=== PATIENT | female | born 1955 | race Two or more races ===

== ENCOUNTER 2017-11-12 08:54 | Inpatient (IN) | payer OTHER ==
[2017-11-12] MEDS ORDERED: LACTATED RINGER'S 1,000 ML IV* (09:30)
[2017-11-12] MEDS: TRANEXAMIC ACID 1,000 MG in D5W 100 ML AT INCISION X1 IVPB (09:30)
[2017-11-12] MEDS: CEFAZOLIN 2 GM/50 ML (PMX) 50 ML IVPB (09:30)
[2017-11-12] MEDS: TRANEXAMIC ACID 1,000 MG in D5W 100 ML AT CLOSURE X1 IVPB (09:30)
[2017-11-12] MEDS ORDERED: CEFAZOLIN 1 GM INJ (10:10)
[2017-11-12] MEDS ORDERED: MIDAZOLAM 1 MG/ML 2 ML INJ (10:10)
[2017-11-12] MEDS ORDERED: ROPIVACAINE 0.5 % 30 ML VIAL (10:10)
[2017-11-12] MEDS ORDERED: PROPOFOL 20 ML (10:10)
[2017-11-12] MEDS ORDERED: ROCURONIUM 50 MG INJ (10:10)
[2017-11-12] MEDS ORDERED: NEOSTIGMINE 3 MG/3 ML SYRINGE (10:10)
[2017-11-12] MEDS ORDERED: ONDANSETRON 4 MG INJ (10:10)
[2017-11-12] MEDS ORDERED: GLYCOPYRROLATE 0.4 MG INJ (10:10)
[2017-11-12] MEDS ORDERED: DEXAMETHASONE 4 MG/ML 1 ML INJ (10:10)
[2017-11-12] MEDS ORDERED: FENTAnyl 50 MCG/ML VIAL (10:10)
[2017-11-12] MEDS ORDERED: BUPIVACAINE 0.5% (SDV) 30 ML INJ ×2 (10:11→13:18)
[2017-11-12] MEDS ORDERED: IPRATROPIUM (NEB) 0.5 MG/2.5 ML AMP HHN (13:30)
[2017-11-12] MEDS ORDERED: MAGNESIUM HYDROXIDE 30ML CUP PO (13:30)
[2017-11-12] MEDS ORDERED: TRIMETHOBENZAMIDE 100 MG/ML VIAL IM (13:30)
[2017-11-12] MEDS ORDERED: LABETALOL HCL 20MG INJ IV (13:30)
[2017-11-12] MEDS ORDERED: ONDANSETRON 4 MG INJ IV (13:30)
[2017-11-12] MEDS ORDERED: hydrALAzine 20 MG INJ IV (13:30)
[2017-11-12] MEDS ORDERED: DIPHENHYDRAMINE 50 MG INJ IM (13:30)
[2017-11-12] MEDS ORDERED: MEPERIDINE 25 MG INJ IV (13:30)
[2017-11-12] MEDS ORDERED: BETHANECHOL 25 MG TAB PO (13:30)
[2017-11-12] MEDS ORDERED: MIDAZOLAM 1 MG/ML 2 ML INJ IV (13:30)
[2017-11-12] MEDS ORDERED: EPHEDrine SULFATE 50 MG/5 ML SYG IV (13:30)
[2017-11-12] MEDS ORDERED: NALOXONE (0.4 MG/ML) INJ IV (13:30)
[2017-11-12] MEDS ORDERED: SENNA/DOCUSATE NA (8.6MG/50MG) TAB PO (13:30)
[2017-11-12] MEDS ORDERED: NA PHOSPHATE/BIPHOS 133 ML ENEMA PR (13:30)
[2017-11-12] MEDS ORDERED: HYDROmorphONE (0.2 MG/ML) 10ML SYG IV ×3 (13:30)
[2017-11-12] MEDS ORDERED: ALBUTEROL 0.083% (NEB) 2.5 MG/3 ML AMP HHN (13:30)
[2017-11-12] MEDS ORDERED: BISACODYL 10 MG SUPP PR (13:30)
[2017-11-12] MEDS ORDERED: FENTAnyl 50 MCG/ML VIAL IV ×3 (13:30)
[2017-11-12] MEDS ORDERED: OXYCODONE/ACETAMINOPHEN (5/325) TAB PO ×2 (13:30)
[2017-11-12] MEDS: POLYMYXIN/BACITRACIN 1L IRRIG IRR (13:38)
[2017-11-12] MEDS ORDERED: METOCLOPRAMIDE 10 MG INJ (14:53)
[2017-11-12] MEDS ORDERED: SUGAMMADEX SODIUM 200 MG/2 ML VIAL IV (14:53)
[2017-11-12] MEDS: ASPIRIN (EC) 325 MG TAB PO (16:38)
[2017-11-12] MEDS: DOCUSATE SODIUM 100 MG CAP PO (16:39)
[2017-11-12] MEDS: CEFAZOLIN 1 GM/50 ML (PMX) 50 ML IVPB ×2 (16:40→22:48)
[2017-11-12] MEDS: ONDANSETRON 4 MG INJ IV ×3 (16:41→22:55)
[2017-11-12] MEDS: SOD CHLORIDE 0.9% 1,000 ML IV (16:42)
[2017-11-12] MEDS: DIPHENHYDRAMINE 50 MG INJ IV (17:57)
[2017-11-12 20:29] LABS: HEMOGLOBIN A1C 6.7 % (0-5.9)
[2017-11-12] MEDS: ACETAMINOPHEN 1000MG/100ML IV 100 ML IVPB ×2 (20:33→21:30)
[2017-11-13] MEDS: SOD CHLORIDE 0.9% 1,000 ML IV ×2 (01:45→14:15)
[2017-11-13] MEDS: ACETAMINOPHEN 1000MG/100ML IV 100 ML IVPB ×3 (04:52→21:23)
[2017-11-13 05:12] LABS: ADD MAN DIFF? NO
[2017-11-13] MEDS: CEFAZOLIN 1 GM/50 ML (PMX) 50 ML IVPB (05:29)
[2017-11-13 05:38] LABS: ANION GAP 16 (8-16); BLOOD UREA NITROGEN 12 mg/dl (7-20); CALCIUM 9.3 mg/dl (8.4-10.2); CARBON DIOXIDE 27 mmol/L (21-31); CHLORIDE 105 mmol/L (97-110); CREATININE 0.56 mg/dl (0.44-1.00); GLUCOSE 166 mg/dl (70-220); POTASSIUM 4.4 mmol/L (3.5-5.1); SODIUM 144 mmol/L (135-144)
[2017-11-13 05:39] LABS: BASOPHILS % 0.1 % (0.0-2.0); HEMATOCRIT 32.1 % (37.0-47.0); HEMOGLOBIN 10.5 g/dl (12.0-16.0); LYMPHOCYTES # 1.5 10^3/ul (0.8-2.9); LYMPHOCYTES % 12.8 % (15.0-51.0); MEAN CORPUSCULAR HEMOGLOBIN 27.3 pg (29.0-33.0); MEAN CORPUSCULAR HGB CONC 32.7 g/dl (32.0-37.0); MEAN CORPUSCULAR VOLUME 83.6 fl (82.0-101.0); MEAN PLATELET VOLUME 11.8 fl (7.4-10.4); MONOCYTE # 0.8 10^3/ul (0.3-0.9); MONOCYTES % 6.3 % (0.0-11.0); NEUTROPHIL # 9.6 10^3/ul (1.6-7.5); NEUTROPHILS % 80.4 % (39.0-77.0); PLATELET COUNT 238 10^3/UL (140-415); RED BLOOD COUNT 3.84 10^6/ul (4.20-5.40); RED CELL DISTRIBUTION WIDTH 13.3 % (11.5-14.5)
[2017-11-13 05:39] LABS: WHITE BLOOD COUNT 11.9 10^3/ul (4.8-10.8)
[2017-11-13] MEDS: ONDANSETRON 4 MG INJ IV (07:25)
[2017-11-13] MEDS: ASPIRIN (EC) 325 MG TAB PO (09:41)
[2017-11-13] MEDS: FERROUS FUMARATE (SR) TAB PO ×2 (09:41→21:22)
[2017-11-13] MEDS: DOCUSATE SODIUM 100 MG CAP PO ×2 (09:41→21:22)
[2017-11-13] MEDS: CELECOXIB 100 MG CAP PO ×2 (09:41→21:22)
[2017-11-13] MEDS: GABAPENTIN 100 MG CAP PO ×2 (09:42→21:22)
[2017-11-13] MEDS: traMADol 50 MG TAB PO ×2 (12:09→16:14)
[2017-11-13] MEDS: ZOLPIDEM 5 MG TAB PO (21:22)
[2017-11-14] MEDS: SOD CHLORIDE 0.9% 1,000 ML IV ×2 (02:45→15:15)
[2017-11-14] MEDS: ACETAMINOPHEN 1000MG/100ML IV 100 ML IVPB (05:03)
[2017-11-14] MEDS: PANTOPRAZOLE (EC) 40 MG TAB PO (05:05)
[2017-11-14] MEDS: DOCUSATE SODIUM 100 MG CAP PO ×2 (09:25→21:00)
[2017-11-14] MEDS: FERROUS FUMARATE (SR) TAB PO ×2 (09:26→21:12)
[2017-11-14] MEDS: ASPIRIN (EC) 325 MG TAB PO (09:26)
[2017-11-14] MEDS: CELECOXIB 100 MG CAP PO ×2 (09:26→21:12)
[2017-11-14] MEDS: GABAPENTIN 100 MG CAP PO ×2 (09:26→21:12)
[2017-11-14 10:08] LABS: ADD MAN DIFF? NO
[2017-11-14 10:10] LABS: WHITE BLOOD COUNT 11.2 10^3/ul (4.8-10.8)
[2017-11-14 10:10] LABS: BASOPHILS % 0.4 % (0.0-2.0); EOSINOPHILS # 0.1 10^3/ul (0.0-0.5); EOSINOPHILS % 1.2 % (0.0-7.0); HEMATOCRIT 31.6 % (37.0-47.0); HEMOGLOBIN 10.4 g/dl (12.0-16.0); LYMPHOCYTES # 3.4 10^3/ul (0.8-2.9); LYMPHOCYTES % 30.3 % (15.0-51.0); MEAN CORPUSCULAR HEMOGLOBIN 27.7 pg (29.0-33.0); MEAN CORPUSCULAR HGB CONC 32.9 g/dl (32.0-37.0); MEAN CORPUSCULAR VOLUME 84.3 fl (82.0-101.0); MEAN PLATELET VOLUME 12.2 fl (7.4-10.4); MONOCYTE # 0.8 10^3/ul (0.3-0.9); MONOCYTES % 7.4 % (0.0-11.0); NEUTROPHIL # 6.8 10^3/ul (1.6-7.5); NEUTROPHILS % 60.4 % (39.0-77.0); PLATELET COUNT 206 10^3/UL (140-415); RED BLOOD COUNT 3.75 10^6/ul (4.20-5.40); RED CELL DISTRIBUTION WIDTH 13.6 % (11.5-14.5)
[2017-11-14 10:28] LABS: ANION GAP 15 (8-16); BLOOD UREA NITROGEN 14 mg/dl (7-20); CALCIUM 8.6 mg/dl (8.4-10.2); CARBON DIOXIDE 29 mmol/L (21-31); CHLORIDE 101 mmol/L (97-110); CREATININE 0.61 mg/dl (0.44-1.00); GLUCOSE 117 mg/dl (70-220); SODIUM 141 mmol/L (135-144)
[2017-11-14] MEDS: traMADol 50 MG TAB PO ×3 (11:50→19:56)
[2017-11-14] MEDS: TRIMETHOBENZAMIDE 100 MG/ML VIAL IM (17:24)
[2017-11-15] MEDS: traMADol 50 MG TAB PO ×5 (03:01→19:56)
[2017-11-15] MEDS: ZOLPIDEM 5 MG TAB PO (03:01)
[2017-11-15] MEDS: PANTOPRAZOLE (EC) 40 MG TAB PO (06:51)
[2017-11-15] MEDS: DOCUSATE SODIUM 100 MG CAP PO (09:00)
[2017-11-15] MEDS: CELECOXIB 100 MG CAP PO (09:16)
[2017-11-15] MEDS: FERROUS FUMARATE (SR) TAB PO (09:16)
[2017-11-15] MEDS: ASPIRIN (EC) 325 MG TAB PO (09:16)
[2017-11-15] MEDS: GABAPENTIN 100 MG CAP PO ×2 (09:16→12:40)
[2017-11-15 10:51] LABS: ADD MAN DIFF? NO
[2017-11-15 10:59] LABS: WHITE BLOOD COUNT 10.2 10^3/ul (4.8-10.8)
[2017-11-15 10:59] LABS: BASOPHIL # 0.1 10^3/ul (0.0-0.1); BASOPHILS % 0.5 % (0.0-2.0); EOSINOPHILS # 0.1 10^3/ul (0.0-0.5); EOSINOPHILS % 0.9 % (0.0-7.0); HEMATOCRIT 31.2 % (37.0-47.0); HEMOGLOBIN 10.3 g/dl (12.0-16.0); LYMPHOCYTES # 3.8 10^3/ul (0.8-2.9); MEAN CORPUSCULAR HEMOGLOBIN 27.7 pg (29.0-33.0); MEAN CORPUSCULAR VOLUME 83.9 fl (82.0-101.0); MEAN PLATELET VOLUME 12.8 fl (7.4-10.4); MONOCYTE # 0.9 10^3/ul (0.3-0.9); MONOCYTES % 8.8 % (0.0-11.0); NEUTROPHIL # 5.3 10^3/ul (1.6-7.5); NEUTROPHILS % 52.5 % (39.0-77.0); PLATELET COUNT 174 10^3/UL (140-415); RED BLOOD COUNT 3.72 10^6/ul (4.20-5.40); RED CELL DISTRIBUTION WIDTH 13.5 % (11.5-14.5)
[2017-11-15 11:10] LABS: POSITIVE DIFF @See below
[2017-11-15 11:11] LABS: ANION GAP 14 (8-16); BLOOD UREA NITROGEN 10 mg/dl (7-20); CALCIUM 8.8 mg/dl (8.4-10.2); CARBON DIOXIDE 27 mmol/L (21-31); CHLORIDE 102 mmol/L (97-110); CREATININE 0.53 mg/dl (0.44-1.00); GLUCOSE 125 mg/dl (70-220); POTASSIUM 4.2 mmol/L (3.5-5.1); SODIUM 139 mmol/L (135-144)
== END 2017-11-15 19:50 | DRG 470 ==
LOC: REC 08:54 → MS1 20:50
PROVIDERS: Orthopaedic Surgery
PROC: 0SRC0J9 Replacement of Right Knee Joint with Synthetic Substitute, Cemented, Open Approach (ICD-10-PCS; principal; 2017-11-12 11:30)
DX: M17.11 Unilateral primary osteoarthritis, right knee (principal); I10 Essential (primary) hypertension; R73.03 Prediabetes
CPT/HCPCS: 73560; 80048; 82962; 83036; 85025; 86850; 86900; 86901; 87081; 88304; 93005; 97110; 97116; 97161; 97165; 97530

== ENCOUNTER → 2018-08-18 | Outpatient (CLI) | payer OTHER | END | disposition home or self-care (01) | LOC: LAB 08:00 | DX: Z01.818 Encounter for other preprocedural examination (principal); Z11.2 Encounter for screening for other bacterial diseases | CPT/HCPCS: 87081 ==

== ENCOUNTER 2018-08-28 10:25 | Inpatient (IN) | payer OTHER ==
[2018-08-28] MEDS: LACTATED RINGER'S 1,000 ML IV (06:00)
[2018-08-28] MEDS: DEXAMETHASONE 4 MG/ML 1 ML INJ IV (10:00)
[2018-08-28] MEDS: ACETAMINOPHEN 500 MG TAB PO (10:00)
[~2018-08-28 10:25] MED LIST: CEFAZOLIN 2 GM/50 ML (PMX) 50 ML (FOR WT < 120 KG) IVPB; SODIUM CHLORIDE IVPB; TRANEXAMIC ACID 1000 MG IVPB; TRANEXAMIC ACID IVPB; [UNRECOGNIZED DRUG - OTHER] IVPB
[2018-08-28] MEDS ORDERED: POLYMYXIN B 500000 UNIT INJ (11:41)
[2018-08-28] MEDS ORDERED: MIDAZOLAM 1 MG/ML 2 ML INJ ×2 (12:07)
[2018-08-28] MEDS ORDERED: CEFAZOLIN 1 GM INJ (12:07)
[2018-08-28] MEDS ORDERED: FENTAnyl 50 MCG/ML VIAL (12:07)
[2018-08-28] MEDS ORDERED: PROPOFOL 100 ML (12:07)
[2018-08-28] MEDS ORDERED: ROPIVACAINE 0.5 % 30 ML VIAL (12:07)
[2018-08-28] MEDS: CEFAZOLIN 2 GM/50 ML (PMX) 50 ML IVPB ×2 (12:40→15:58)
[2018-08-28] MEDS ORDERED: ONDANSETRON 4 MG INJ (13:06)
[2018-08-28] MEDS ORDERED: FAMOTIDINE 20 MG INJ (13:06)
[2018-08-28] MEDS ORDERED: DEXAMETHASONE 4 MG/ML 1 ML INJ (13:06)
[2018-08-28] MEDS ORDERED: METOCLOPRAMIDE 10 MG INJ (13:06)
[2018-08-28] MEDS ORDERED: EPHEDrine 50 MG INJ (13:11)
[2018-08-28] MEDS: BACITRACIN 50000 UNITS INJ (13:18)
[2018-08-28] MEDS: POLYMYXIN B 500000 UNIT INJ (13:18)
[2018-08-28] MEDS ORDERED: FENTAnyl 50 MCG/ML VIAL IV ×3 (13:30)
[2018-08-28] MEDS ORDERED: MEPERIDINE 25 MG INJ IV (13:30)
[2018-08-28] MEDS ORDERED: METOCLOPRAMIDE 10 MG INJ IV (13:30)
[2018-08-28] MEDS ORDERED: EPHEDrine SULFATE 50 MG/5 ML SYG IV (13:30)
[2018-08-28] MEDS ORDERED: hydrALAzine 20 MG INJ IV (13:30)
[2018-08-28] MEDS ORDERED: ONDANSETRON 4 MG INJ IV (13:30)
[2018-08-28] MEDS ORDERED: NALOXONE (0.4 MG/ML) INJ IV ×2 (13:30→14:00)
[2018-08-28] MEDS ORDERED: DIPHENHYDRAMINE 50 MG INJ IV ×3 (13:30→14:00)
[2018-08-28] MEDS ORDERED: LABETALOL HCL 20MG INJ IV (13:30)
[2018-08-28] MEDS ORDERED: SOD CHLORIDE 0.9% 1,000 ML IV (13:40)
[2018-08-28] MEDS ORDERED: SENNA/DOCUSATE NA (8.6MG/50MG) TAB PO (14:00)
[2018-08-28] MEDS ORDERED: BISACODYL 10 MG SUPP PR (14:00)
[2018-08-28] MEDS ORDERED: BETHANECHOL 25 MG TAB PO (14:00)
[2018-08-28] MEDS ORDERED: MAGNESIUM HYDROXIDE 30ML CUP PO (14:00)
[2018-08-28] MEDS ORDERED: NA PHOSPHATE/BIPHOS 133 ML ENEMA PR (14:00)
[2018-08-28] MEDS ORDERED: NACL 0.9% 3 ML SYG IV (14:00)
[2018-08-28] MEDS ORDERED: oxyCODONE 5 MG TAB PO ×3 (14:00)
[2018-08-28] MEDS: ASPIRIN (EC) 325 MG TAB PO (15:17)
[2018-08-28] MEDS: DOCUSATE SODIUM 100 MG CAP PO (15:17)
[2018-08-28] MEDS ORDERED: GLUCOSE GEL 15 GRAM TUBE BUCCAL (18:00)
[2018-08-28] MEDS ORDERED: DEXTROSE 50% 50 ML SYRINGE IV ×2 (18:00)
[2018-08-28] MEDS ORDERED: GLUCOSE GEL 15 GRAM TUBE PO ×2 (18:00)
[2018-08-28] MEDS ORDERED: GLUCAGON 1 MG INJ IM (18:00)
[2018-08-28] MEDS: metFORMIN (XR) 500 MG TAB PO (18:52)
[2018-08-28] MEDS: GABAPENTIN 100 MG CAP PO (21:07)
[2018-08-28] MEDS: traMADol 50 MG TAB PO (22:37)
[2018-08-28] MEDS: ZOLPIDEM 5 MG TAB PO (22:37)
[2018-08-29] MEDS: HYDROmorphONE 0.5 MG/0.5 ML SYG IV (02:54)
[2018-08-29] MEDS: CEFAZOLIN 2 GM/50 ML (PMX) 50 ML IVPB (06:43)
[2018-08-29] MEDS: CELECOXIB 100 MG CAP PO ×2 (08:27→20:56)
[2018-08-29] MEDS: traMADol 50 MG TAB PO ×3 (08:27→20:55)
[2018-08-29] MEDS: ONDANSETRON 4 MG INJ IV (08:27)
[2018-08-29] MEDS: DOCUSATE SODIUM 100 MG CAP PO ×2 (08:27→20:56)
[2018-08-29] MEDS: ASPIRIN (EC) 325 MG TAB PO (08:29)
[2018-08-29] MEDS: GABAPENTIN 100 MG CAP PO ×3 (08:29→20:56)
[2018-08-29] MEDS: metFORMIN (XR) 500 MG TAB PO (08:29)
[2018-08-29 10:28] LABS: ADD MAN DIFF? NO
[2018-08-29 10:37] LABS: WHITE BLOOD COUNT 12.7 10^3/ul (4.8-10.8)
[2018-08-29 10:37] LABS: BASOPHILS % 0.2 % (0.0-2.0); EOSINOPHILS % 0.1 % (0.0-7.0); HEMATOCRIT 28.5 % (37.0-47.0); LYMPHOCYTES # 1.7 10^3/ul (0.8-2.9); LYMPHOCYTES % 13.6 % (15.0-51.0); MEAN CORPUSCULAR HEMOGLOBIN 26.2 pg (29.0-33.0); MEAN CORPUSCULAR HGB CONC 31.6 g/dl (32.0-37.0); MEAN CORPUSCULAR VOLUME 82.8 fl (82.0-101.0); MEAN PLATELET VOLUME 11.8 fl (7.4-10.4); MONOCYTES % 7.6 % (0.0-11.0); NEUTROPHIL # 9.9 10^3/ul (1.6-7.5); NEUTROPHILS % 77.9 % (39.0-77.0); PLATELET COUNT 206 10^3/UL (140-415); RED BLOOD COUNT 3.44 10^6/ul (4.20-5.40); RED CELL DISTRIBUTION WIDTH 14.9 % (11.5-14.5)
[2018-08-29 10:52] LABS: ANION GAP 10 (5-13); BLOOD UREA NITROGEN 20 mg/dl (7-20); CALCIUM 8.9 mg/dl (8.4-10.2); CARBON DIOXIDE 25 mmol/L (21-31); CHLORIDE 102 mmol/L (97-110); Estimated GFR > 60 mL/min (>60); GLUCOSE 204 mg/dl (70-220); POTASSIUM 4.2 mmol/L (3.5-5.1); SODIUM 137 mmol/L (135-144)
[2018-08-30] MEDS: ACETAMINOPHEN 500 MG TAB PO ×2 (00:53→09:26)
[2018-08-30] MEDS: morphine 4 MG/ML VIAL IV (01:36)
[2018-08-30] MEDS: PANTOPRAZOLE (EC) 40 MG TAB PO (05:44)
[2018-08-30] MEDS: traMADol 50 MG TAB PO (05:45)
[2018-08-30 08:19] LABS: ADD MAN DIFF? NO
[2018-08-30 08:30] LABS: BASOPHILS % 0.4 % (0.0-2.0); EOSINOPHILS # 0.1 10^3/ul (0.0-0.5); EOSINOPHILS % 0.8 % (0.0-7.0); HEMOGLOBIN 8.9 g/dl (12.0-16.0); LYMPHOCYTES # 2.8 10^3/ul (0.8-2.9); LYMPHOCYTES % 29.6 % (15.0-51.0); MEAN CORPUSCULAR HEMOGLOBIN 26.1 pg (29.0-33.0); MEAN CORPUSCULAR HGB CONC 31.8 g/dl (32.0-37.0); MEAN CORPUSCULAR VOLUME 82.1 fl (82.0-101.0); MEAN PLATELET VOLUME 11.6 fl (7.4-10.4); MONOCYTE # 0.8 10^3/ul (0.3-0.9); MONOCYTES % 8.6 % (0.0-11.0); NEUTROPHIL # 5.7 10^3/ul (1.6-7.5); NEUTROPHILS % 60.3 % (39.0-77.0); PLATELET COUNT 187 10^3/UL (140-415); RED BLOOD COUNT 3.41 10^6/ul (4.20-5.40); RED CELL DISTRIBUTION WIDTH 15.3 % (11.5-14.5)
[2018-08-30 08:30] LABS: WHITE BLOOD COUNT 9.4 10^3/ul (4.8-10.8)
[2018-08-30 08:49] LABS: ANION GAP 7 (5-13); BLOOD UREA NITROGEN 13 mg/dl (7-20); CALCIUM 8.8 mg/dl (8.4-10.2); CARBON DIOXIDE 32 mmol/L (21-31); CHLORIDE 101 mmol/L (97-110); CREATININE 0.59 mg/dl (0.44-1.00); Estimated GFR > 60 mL/min (>60); GLUCOSE 163 mg/dl (70-220); POTASSIUM 4.5 mmol/L (3.5-5.1); SODIUM 140 mmol/L (135-144)
[2018-08-30 08:51] LABS: IRON 19 ug/dl (35-150)
[2018-08-30 09:01] LABS: % IRON SATURATION 7 % SAT (22-52); TOTAL IRON BINDING CAPACITY 284 ug/dl (241-421)
[2018-08-30] MEDS: DOCUSATE SODIUM 100 MG CAP PO ×2 (09:25→20:56)
[2018-08-30] MEDS: CELECOXIB 100 MG CAP PO ×2 (09:26→20:56)
[2018-08-30] MEDS: metFORMIN (XR) 500 MG TAB PO (09:26)
[2018-08-30] MEDS: GABAPENTIN 100 MG CAP PO ×3 (09:26→20:56)
[2018-08-30] MEDS: ASPIRIN (EC) 325 MG TAB PO (09:26)
[2018-08-30 10:09] LABS: FERRITIN 42.2 ng/ml (11.1-264.0)
[2018-08-30] MEDS: HYDROmorphONE 2 MG TAB PO (10:38)
[2018-08-30] MEDS: KETOROLAC 15 MG INJ IV (11:54)
[2018-08-30] MEDS: ONDANSETRON 4 MG INJ IV (13:07)
[2018-08-31] MEDS: PANTOPRAZOLE (EC) 40 MG TAB PO (05:17)
[2018-08-31 08:09] LABS: ADD MAN DIFF? NO
[2018-08-31 08:12] LABS: BASOPHIL # 0.1 10^3/ul (0.0-0.1); BASOPHILS % 0.7 % (0.0-2.0); EOSINOPHILS # 0.2 10^3/ul (0.0-0.5); EOSINOPHILS % 1.9 % (0.0-7.0); HEMOGLOBIN 9.4 g/dl (12.0-16.0); LYMPHOCYTES # 2.8 10^3/ul (0.8-2.9); LYMPHOCYTES % 34.3 % (15.0-51.0); MEAN CORPUSCULAR HEMOGLOBIN 25.8 pg (29.0-33.0); MEAN CORPUSCULAR HGB CONC 31.3 g/dl (32.0-37.0); MEAN CORPUSCULAR VOLUME 82.2 fl (82.0-101.0); MEAN PLATELET VOLUME 11.3 fl (7.4-10.4); MONOCYTE # 0.7 10^3/ul (0.3-0.9); MONOCYTES % 8.3 % (0.0-11.0); NEUTROPHIL # 4.5 10^3/ul (1.6-7.5); NEUTROPHILS % 54.4 % (39.0-77.0); PLATELET COUNT 212 10^3/UL (140-415); RED BLOOD COUNT 3.65 10^6/ul (4.20-5.40); RED CELL DISTRIBUTION WIDTH 15.1 % (11.5-14.5)
[2018-08-31 08:12] LABS: WHITE BLOOD COUNT 8.3 10^3/ul (4.8-10.8)
[2018-08-31 08:36] LABS: ANION GAP 5 (5-13); BLOOD UREA NITROGEN 10 mg/dl (7-20); CALCIUM 9.2 mg/dl (8.4-10.2); CARBON DIOXIDE 33 mmol/L (21-31); CHLORIDE 103 mmol/L (97-110); CREATININE 0.59 mg/dl (0.44-1.00); Estimated GFR > 60 mL/min (>60); GLUCOSE 177 mg/dl (70-220); POTASSIUM 4.6 mmol/L (3.5-5.1); SODIUM 141 mmol/L (135-144)
[2018-08-31] MEDS: metFORMIN (XR) 500 MG TAB PO (09:33)
[2018-08-31] MEDS: GABAPENTIN 100 MG CAP PO ×2 (09:33→13:22)
[2018-08-31] MEDS: CELECOXIB 100 MG CAP PO (09:34)
[2018-08-31] MEDS: DOCUSATE SODIUM 100 MG CAP PO (09:34)
[2018-08-31] MEDS: ASPIRIN (EC) 325 MG TAB PO (09:34)
[2018-08-31] MEDS: traMADol 50 MG TAB PO (09:38)
== END 2018-08-31 14:35 | disposition home health service (06) | DRG 470 ==
LOC: REC 10:25 → MS1 16:20
PROVIDERS: Orthopaedic Surgery
PROC: 0SRD0J9 Replacement of Left Knee Joint with Synthetic Substitute, Cemented, Open Approach (ICD-10-PCS; principal; 2018-08-28 12:30)
DX: M17.12 Unilateral primary osteoarthritis, left knee (principal); E11.9 Type 2 diabetes mellitus without complications; E78.5 Hyperlipidemia, unspecified; Z79.84 Long term (current) use of oral hypoglycemic drugs
CPT/HCPCS: 73560; 80048; 82728; 82962; 83540; 85025; 86850; 86900; 86901; 87081; 88304; 88311; 97110; 97116; 97162; 97167; 97530; 99217